=== PATIENT | female | born 1960 | race Caucasian/White ===

== ENCOUNTER 2016-08-31 07:32 | Day surgery (SDC) | payer BC ==
[2016-08-27 17:19] LABS: HEMATOCRIT 38.5 % (36.0-48.0); HEMOGLOBIN 12.9 g/dL (12.0-16.0)
[2016-08-27 17:41] LABS: A/G RATIO 1.2 (0.7-1.9); ALBUMIN 3.6 G/DL (3.5-5.0); CALCIUM, SERUM 10.2 MG/DL (8.5-10.4); CHLORIDE, SERUM 109 MMOL/L (96-112); CO2 (CARBON DIOXIDE) 26 MMOL/L (24-34); GFR AFRICAN AMERICAN 65 ML/MIN (>=60); GFR NON AFRICAN AMERICAN 56 ML/MIN (>=60); GLOBULIN 3.1 G/DL (2.5-4.1); POTASSIUM, SERUM 4.3 MMOL/L (3.5-5.3); SGOT(AST) 46 U/L (5-40); SGPT(ALT) 57 U/L (5-65); SODIUM, SERUM 142 MMOL/L (135-148); TOTAL BILIRUBIN 0.3 MG/DL (0-1.2); TOTAL PROTEIN 6.7 G/DL (6.0-8.5)
[2016-08-27 17:43] LABS: ALKALINE PHOSPHATASE 84 U/L (45-117); BUN (BLOOD UREA NITROGEN) 13 MG/DL (6-23); GLUCOSE, SERUM 113 MG/DL (60-99)
--- NOTE | ~2016-08-31 | OP ---
Record Of Operation [facility] [address] [place]. [address] NAME: GLADIS CARDOZA : 58 STATUS : [facility]#: [id number] AGE: 55 ADM/REG DATE : 08/31/16 MR#: [id number] REPORT SERV DATE: 08/31/16 DICTATED BY: ALEX PLASENCIA DATE: 08/31/16 REPORT STATUS : Draft TRANSCRIBED BY: MODL DATE: 08/31/16 DATE OF PROCEDURE: 08/31/2016 PREOPERATIVE DIAGNOSIS: Primary hyperparathyroidism. POSTOPERATIVE DIAGNOSIS: Primary hyperparathyroidism. PROCEDURE: Bilateral cervical exploration and resection of intrathyroidal right inferior parathyroid adenoma using intraoperative parathyroid hormone measurement. SURGEON: Alex Plasencia M.D. RESIDENT SURGEON: Devang Licea M.D. ANESTHESIA: General. ESTIMATED BLOOD LOSS: 20 mL. BRIEF HISTORY AND DESCRIPTION OF FINDINGS: The patient had been diagnosed with clear biochemical hypercalcemic primary hyperparathyroidism. Outpatient ultrasound suggested a possible left superior abnormality intraoperatively, the preincision intraoperative parathyroid hormone level (IOPTH) was 121 pg/mL, normal left superior and inferior glands were identified in typical locations. The right superior gland was not identified. Partially intrathyroidal at the inferior pole of the right lobe large adenoma was resected, 20 minutes post excision IOPTH of 20 pg/mL was consistent with curative resection. DETAILS OF PROCEDURE: The patient arrived in the operating suite and was placed on the table in supine position. General anesthesia obtained via an endotracheal tube. The patient was appropriately positioned. The neck and upper chest were prepped and draped in a sterile manner. A cervical collar incision was performed. Subplatysmal flaps were elevated with blunt dissection and cautery. Strap muscles were split in the midline. Plane dissection created between the small, somewhat firm thyroid and overlying strap muscles on the left. The thyroid vein branches were divided between clips. Posterior to the midportion of the left lobe, normal-appearing parathyroid was identified and a similar normal-appearing gland was noted along the lateral aspect of the inferior pole. Hemostasis was obtained by clipping small vessels. Attention was then turned to the right, middle thyroid vein was again divided between clips allowing the right lobe to be rotated anteromedially. The recurrent nerve was identified and posterior to it, there was no evidence of superior gland seen, a very meticulous dissection anteriorly, initially no thyroid was identified. Thymic tongue was delivered from distally and divided between clips and traced back to its base. There was no intrathymic parathyroid grossly seen. Cervical thymus was amputated and sent for permanent histology. Just proximal to the base, a small maroon area was noted. This was carefully dissected and appeared to possibly represent parathyroid. Overlying thyroid tissue was then unroofed with cautery and a large parathyroid adenoma was released partially within the thyroid tissue at the inferior pole. Its blood supply was clearly defined and then divided between clips. The specimen was dissected clearly representing parathyroid and Record Of Operation [facility] [address] [facility] [place]. [address] NAME: GLADIS CARDOZA : 58 STATUS : [facility] PAT#: [id number] AGE: 55 ADM/REG DATE : 08/31/16 MR#: [id number] REPORT SERV DATE: 08/31/16 DICTATED BY: ALEX PLASENCIA DATE: 08/31/16 REPORT STATUS : Draft TRANSCRIBED BY: MODRenato DATE: 08/31/16 sent for permanent histology. The wound was irrigated. Hemostasis was good. Surgicel was placed in tracheoesophageal groove bilaterally. Strap muscle was approximated with 3-0 Vicryl, platysma with 4-0 Vicryl. Skin was closed with subcuticular 5-0 Monocryl. Sterile dressing was applied. The patient was awakened and extubated and taken to PACU. /LORETTA Alex Plasencia M.D. / [id number] CC: Edilma Rosen M.D.
--- NOTE | ~2016-08-31 | OP ---
Record Of Operation [facility] [address] [place]. [address] NAME: GLADIS CARDOZA : 58 STATUS : [facility]#: [id number] AGE: 55 ADM/REG DATE : 08/31/16 MR#: [id number] REPORT SERV DATE: 08/31/16 DICTATED BY: ALEX PLASENCIA DATE: 08/31/16 REPORT STATUS : Draft TRANSCRIBED BY: LORETTA DATE: 08/31/16 DATE OF PROCEDURE: 08/31/2016 PREOPERATIVE DIAGNOSIS: Primary hyperparathyroidism. POSTOPERATIVE DIAGNOSIS: Primary hyperparathyroidism. PROCEDURE: Parathyroidectomy with four-gland exploration. CHIEF RESIDENT: Devang Licea MD. ANESTHETIC: General. IV FLUIDS: Approximately 800 mL. ESTIMATED BLOOD LOSS: 25 mL. COMPLICATIONS: None. FINDINGS: Right inferior parathyroid adenoma. SPECIMEN: Right inferior parathyroid. DESCRIPTION OF PROCEDURE: The patient was brought to the operating room and placed supine on the operating table. Anesthesia was administered and endotracheal intubation achieved. The neck was prepped and draped in a standard sterile fashion. The patient was positioned with a shoulder roll in semi-Swain position to achieve maximal extension of the neck. A time- out was called. Incision was made and centered on the line through a natural skin crease approximately 4 cm. Cautery was taken down through the platysma. The subplatysmal flaps were developed. The median raphe was divided with electrocautery down to the thyroid. Next, we turned our attention to the left side. The thyroid was dissected off the posterior aspect of the strap muscles. The thyroid was rotated medially. The inferior thyroid vein was clipped and divided. The left superior parathyroid was identified posterior to the gland. Next, we turned our attention to the inferior parathyroid, which was normal appearing at the inferior pole of the gland. Next, we turned our attention to the right parathyroid. The thyroid lobe was dissected free from the posterior aspect of the strap muscles in similar fashion. The gland was rotated medially. The right superior parathyroid was not initially identified. We turned our attention to the inferior gland, which was ultimately found to be an abnormal adenoma and was intrathyroidal. The arborizing blood supply was then clipped and divided. The specimen was passed off. We then looked for a superior gland, which was ultimately identified and it was found be normal appearing. The area of dissection was found to have adequate hemostasis. Surgicel was placed on either side of the neck. The median raphe was reapproximated with 3-0 Vicryl in a running fashion. The subplatysmal flaps were reapproximated with 4-0 Vicryl in interrupted fashion. The skin was reapproximated with 4-0 Monocryl in a subcuticular stitch. Sterile dressing was applied, and the patient was extubated and transferred to the recovery room in stable Record Of Operation [address] [address] NAME: GLADIS CARDOZA : 58 STATUS : [facility] PAT#: [id number] AGE: 55 ADM/REG DATE : 08/31/16 MR#: [id number] REPORT SERV DATE: 08/31/16 DICTATED BY: ALEX PLASENCIA DATE: 08/31/16 REPORT STATUS : Draft TRANSCRIBED BY: LORETTA DATE: 08/31/16 condition. SR/LORETTA Alex Plasencia M.D. / [id number] CC: Edilma Rosen M.D.
[~2016-08-31 07:32] MED LIST: ASAB PO; COQ-10200 MG PO; ESTRATEST PO; KRILLOIL PO; LIPOTRIAD1 CAP PO; PRAV10 PO; PRILOSEC OTC20 MG PO; PRILOSEC40 MG PO; SYN075 PO; VITAMIN D2000 UNIT PO; ZESTORETIC1 TAB PO
[2016-08-31 09:15] LABS: PTH (INTRAOPERATIVE) 120.8 PG/ML (10.0-65.0); PTH TAT 0 Hrs 00 Mins
[2016-08-31 11:05] LABS: PTH (INTRAOPERATIVE) 20.4 PG/ML (10.0-65.0); PTH TAT 0 Hrs 00 Mins
== END 2016-08-31 14:22 | disposition home or self-care (01) ==
LOC: SDC 07:32
PROVIDERS: Specialist
PROC: 0GTR0ZZ Resection of Parathyroid Gland, Open Approach (ICD-10-PCS; principal; 2016-08-31 08:45)
DX: D35.1 Benign neoplasm of parathyroid gland (principal); E21.0 Primary hyperparathyroidism; I10 Essential (primary) hypertension; E03.9 Hypothyroidism, unspecified; E78.00 Pure hypercholesterolemia, unspecified; F17.210 Nicotine dependence, cigarettes, uncomplicated; K21.9 Gastro-esophageal reflux disease without esophagitis; M19.90 Unspecified osteoarthritis, unspecified site; Z79.82 Long term (current) use of aspirin; Z79.899 Other long term (current) drug therapy; Z90.710 Acquired absence of both cervix and uterus; Z98.51 Tubal ligation status; Z98.890 Other specified postprocedural states
CPT/HCPCS: 80053; 83970; 85014; 85018; 88305; 88313; 93005; A9270-GY; C1769; J2250; J2405; J2710; J3010